=== PATIENT | female | born 1955 | race Caucasian/White ===

== ENCOUNTER 2021-10-17 06:50 | Outpatient (RCR) | payer MEDICARE, SELFPAY ==
--- NOTE | 2021-10-16 10:29 | N.ONRAD NP_ITS ---
Radiation Oncology Consultation Patient Name: Venice Montejo Date of : 1955 Date of Service: 10/16/2021 Attending Physician: Jh Green M.D. Venice Montejo was seen in consultation this morning for consideration of adjuvant breast radiotherapy in the management of a recently diagnosed early stage breast cancer. A screening mammogram ordered on July 03, 2021 identified a spiculated mass at the 12 o'clock position within in the right breast. An ultrasound-guided core biopsy obtained on August 19, 2021 diagnosed a grade 1, invasive mammary carcinoma. Breast cancer profile reported estrogen receptor positivity (> 90%), progesterone receptor positivity (> 90%), and HER-2 negativity (1+ by IHC). An MRI of the breasts (independently reviewed in [facility]) completed on August 30, 2021 demonstrated a 1.8 cm x 1.3 cm x 1.5 cm enhancing mass in the central aspect of the right breast and a 7 mm x 4 mm x 3 mm oval-shaped enhancing mass at the 9 o'clock position within the right breast potentially representing an intramammary lymph node. Ultrasonography confirmed a the irregular mass at the 10 o'clock position within the right breast measuring 1.3 cm x 0.9 cm x 1.2 cm, 5 cm from the nipple and benign intramammary lymph nodes corresponding to the MRI finding. A right partial mastectomy with sentinel lymph node biopsy was performed by Issac Wesley M.D. at [facility] in [place], [place] on September 11, 2021. The pathology report (requested from the outside hospital and personally reviewed in [facility]) described a 1.6 cm, grade 2 invasive ductal carcinoma. All surgical margins were negative for malignancy. A solitary sentinel lymph node was harvested without metastatic disease. The Oncotype DX Recurrence Score was 9. An aromatase inhibitor has been prescribed by Hermelinda Chapman M.D. She was evaluated today for adjuvant breast radiotherapy. I discussed the [place] [employer] on Cancer Staging and specifically the patient's pathologic stage IA (T1cN0) breast cancer and reviewed the National Comprehensive Cancer Network Guidelines endorsing adjuvant radiotherapy. I also summarized the classic study by the NSABP comparing mastectomy, lumpectomy, and lumpectomy with radiotherapy in addition to the Early Breast Cancer Trialist Collaborative Group meta-analysis that established this treatment standard. She is aware that the addition of radiotherapy to lumpectomy provides improvement in local control and overall survival. Prior to beginning treatment, a computed tomographic radiotherapy planning scan in the treatment position will be performed to identify the clinical tumor volume. I would recommend a three week course of hypofractionated radiotherapy to the breast. The potential toxicities of adjuvant breast radiotherapy were recounted. The patient has verbalized understanding and would like to proceed as recommended. The patient's medical treatment was discussed with Hermelinda Chapman M.D. Signed by: Dr. Jh Green 10/16/2021 10:27:49 AM
--- NOTE | 2021-10-17 | CT_ITS ---
Radiation Therapy Planning CT images; total exam DLP: 1139.63 mGy-cm MTDD
== END 2021-10-17 23:59 | disposition home or self-care (01) ==
LOC: ONCMED 06:50
PROVIDERS: Family Provider Family Medicine; PCP Family Medicine; Visit Provider Radiology Radiation Oncology
DX: Z51.0 Encounter for antineoplastic radiation therapy (principal); C50.811 Malignant neoplasm of overlapping sites of right female breast; Z17.0 Estrogen receptor positive status [ER+]; Z90.11 Acquired absence of right breast and nipple; Z79.811 Long term (current) use of aromatase inhibitors
CPT/HCPCS: 77280; 77332; 77470; 99205

== ENCOUNTER 2021-11-04 12:54 | Outpatient (CLI) | payer MEDICARE, SELFPAY ==
--- NOTE | 2021-11-04 13:10 | XR_ITS ---
WS: [id number] DEXA (DUAL ENERGY X-RAY ABSORPTIOMETRY) Bone mineral density was performed using a [employer] machine. HISTORY: BREAST CANCER COMPARISON: None available. Lumbar spine BMD (L1-L4): 0.993 g/cm2 T score: -1.6 Z score: -0.9 Total hip BMD: Left: 0.981 g/cm2. T score: -0.2 Z score: 0.3 Right: 0.934 g/cm2. T score: -0.6 Z score: 0.0 10 year probability of a major osteoporotic fracture is 8.6%. XR/XR DEXA axial skeleton* 35979 IMPRESSION: OSTEOPENIA based upon the WHO classification for females.
== END 2021-11-04 12:55 | disposition home or self-care (01) ==
LOC: RAD 13:06
PROVIDERS: PCP Family Medicine; Visit Provider Internal Medicine Hematology & Oncology
DX: C50.919 Malignant neoplasm of unspecified site of unspecified female breast (principal); M85.80 Other specified disorders of bone density and structure, unspecified site
CPT/HCPCS: 77080

== ENCOUNTER 2021-11-08 06:45 | Outpatient (RCR) | payer MEDICARE, SELFPAY ==
--- NOTE | 2021-10-21 09:24 | ONCRAD TMN_ITS ---
Radiation Oncology Treatment Management Note Patient Name: Venice Montejo Date of : 1955 Date of Service: 10/21/2021 Attending Physician: Jh Green M.D. Venice Montejo is a 66 year-old white female recently diagnosed with a pathological stage IA (T1cN0) ductal carcinoma of the right breast. A screening mammogram ordered on July 03, 2021 identified a spiculated mass at the 12 o'clock position within in the right breast. An ultrasound-guided core biopsy obtained on August 19, 2021 diagnosed a grade 1, invasive mammary carcinoma. Breast cancer profile reported estrogen receptor positivity (> 90%), progesterone receptor positivity (> 90%), and HER-2 negativity (1+ by IHC). An MRI of the breasts (independently reviewed in [facility]) completed on August 30, 2021 demonstrated a 1.8 cm x 1.3 cm x 1.5 cm enhancing mass in the central aspect of the right breast and a 7 mm x 4 mm x 3 mm oval-shaped enhancing mass at the 9 o'clock position within the right breast potentially representing an intramammary lymph node. Ultrasonography confirmed a the irregular mass at the 10 o'clock position within the right breast measuring 1.3 cm x 0.9 cm x 1.2 cm, 5 cm from the nipple and benign intramammary lymph nodes corresponding to the MRI finding. A right partial mastectomy with sentinel lymph node biopsy was performed by Issac Wseley M.D. at [facility] in [place], [place] on September 11, 2021. The pathology report (requested from the outside hospital and personally reviewed in [facility]) described a 1.6 cm, grade 2 invasive ductal carcinoma. All surgical margins were negative for malignancy. A solitary sentinel lymph node was harvested without metastatic disease. The Oncotype DX Recurrence Score was 9. An aromatase inhibitor has been prescribed by Hermelinda Chapman M.D. She has received 2.7 Gy of a prescribed 40 Gy delivered in the prone disposition with a 3D conformal radiotherapy plan utilizing opposed tangential portal naranjo. Upon review of systems, she denied any breast complaints to radiotherapy. On physical examination, the patient weighed 207 lbs. Her temperature was 98 ???F and the blood pressure was 147/79 mmHg. Her pulse was 72 bpm and her respiratory rate was 18. There was no erythema within the treatment naranjo of the right breast. Continue right breast radiotherapy as prescribed. Signed by: Dr. Jh Green 10/21/2021 9:21:56 AM
--- NOTE | 2021-10-28 08:49 | ONCRAD TMN_ITS ---
Radiation Oncology Treatment Management Note Patient Name: Venice Montejo Date of : 1955 Date of Service: 10/28/2021 Attending Physician: Jh Green M.D. Venice Montejo is a 66 year-old white female recently diagnosed with a pathological stage IA (T1cN0) ductal carcinoma of the right breast. A screening mammogram ordered on July 03, 2021 identified a spiculated mass at the 12 o'clock position within in the right breast. An ultrasound-guided core biopsy obtained on August 19, 2021 diagnosed a grade 1, invasive mammary carcinoma. Breast cancer profile reported estrogen receptor positivity (> 90%), progesterone receptor positivity (> 90%), and HER-2 negativity (1+ by IHC). An MRI of the breasts (independently reviewed in [facility]) completed on August 30, 2021 demonstrated a 1.8 cm x 1.3 cm x 1.5 cm enhancing mass in the central aspect of the right breast and a 7 mm x 4 mm x 3 mm oval-shaped enhancing mass at the 9 o'clock position within the right breast potentially representing an intramammary lymph node. Ultrasonography confirmed a the irregular mass at the 10 o'clock position within the right breast measuring 1.3 cm x 0.9 cm x 1.2 cm, 5 cm from the nipple and benign intramammary lymph nodes corresponding to the MRI finding. A right partial mastectomy with sentinel lymph node biopsy was performed by Issac Wesley M.D. at [facility] in [place], [place] on September 11, 2021. The pathology report (requested from the outside hospital and personally reviewed in [facility]) described a 1.6 cm, grade 2 invasive ductal carcinoma. All surgical margins were negative for malignancy. A solitary sentinel lymph node was harvested without metastatic disease. The Oncotype DX Recurrence Score was 9. An aromatase inhibitor has been prescribed by Hermelinda Chapman M.D. She has received 16 Gy of a prescribed 40 Gy delivered in the prone disposition with a 3D conformal radiotherapy plan utilizing opposed tangential portal naranjo. Upon review of systems, she did not report any breast complaints to radiotherapy. On physical examination, the patient weighed 207 lbs. Her temperature was 97.5 ???F and the blood pressure was 138/76 mmHg. Her pulse was 84 bpm and her respiratory rate was 20. There was no erythema within the treatment naranjo of the right breast. Continue right breast radiotherapy as planned. Signed by: Dr. Jh Green 10/28/2021 8:47:21 AM
--- NOTE | 2021-11-04 09:09 | ONCRAD TMN_ITS ---
Radiation Oncology Treatment Management Note Patient Name: Venice Montejo Date of : 1955 Date of Service: 11/04/2021 Attending Physician: Jh Green M.D. Venice Montejo is a 66 year-old white female recently diagnosed with a pathological stage IA (T1cN0) ductal carcinoma of the right breast. A screening mammogram ordered on July 03, 2021 identified a spiculated mass at the 12 o'clock position within in the right breast. An ultrasound-guided core biopsy obtained on August 19, 2021 diagnosed a grade 1, invasive mammary carcinoma. Breast cancer profile reported estrogen receptor positivity (> 90%), progesterone receptor positivity (> 90%), and HER-2 negativity (1+ by IHC). An MRI of the breasts (independently reviewed in [facility]) completed on August 30, 2021 demonstrated a 1.8 cm x 1.3 cm x 1.5 cm enhancing mass in the central aspect of the right breast and a 7 mm x 4 mm x 3 mm oval-shaped enhancing mass at the 9 o'clock position within the right breast potentially representing an intramammary lymph node. Ultrasonography confirmed a the irregular mass at the 10 o'clock position within the right breast measuring 1.3 cm x 0.9 cm x 1.2 cm, 5 cm from the nipple and benign intramammary lymph nodes corresponding to the MRI finding. A right partial mastectomy with sentinel lymph node biopsy was performed by Issac Wesley M.D. at [facility] in [place], [place] on September 11, 2021. The pathology report (requested from the outside hospital and personally reviewed in [facility]) described a 1.6 cm, grade 2 invasive ductal carcinoma. All surgical margins were negative for malignancy. A solitary sentinel lymph node was harvested without metastatic disease. The Oncotype DX Recurrence Score was 9. An aromatase inhibitor has been prescribed by Hermelinda Chapman M.D. She has received 29.3 Gy of a prescribed 40 Gy delivered in the prone disposition with a 3D conformal radiotherapy plan utilizing opposed tangential portal naranjo. Upon review of systems, she did not report any breast complaints related to radiotherapy. On physical examination, the patient weighed 207 lbs. Her temperature was 98 ???F and the blood pressure was 155/80 mmHg. Her pulse was 74 bpm and her respiratory rate was 16. There was no erythema within the treatment naranjo of the right breast. Continue right breast radiotherapy as prescribed. Signed by: Jh Green 11/04/2021 9:08:02 AM
--- NOTE | 2021-11-08 08:23 | N.ONRD TS_ITS ---
Radiation OncologyTreatment Summary Patient Name: Venice Montejo Date of : 1955 Date of Service: 11/08/2021 Attending Physician: Jh Green M.D. Venice Montejo has completed adjuvant breast radiotherapy for the management of a pathological stage IA (T1cN0) ductal carcinoma of the right breast. A screening mammogram ordered on July 03, 2021 identified a spiculated mass at the 12 o'clock position within in the right breast. An ultrasound-guided core biopsy obtained on August 19, 2021 diagnosed a grade 1, invasive mammary carcinoma. Breast cancer profile reported estrogen receptor positivity (> 90%), progesterone receptor positivity (> 90%), and HER-2 negativity (1+ by IHC). An MRI of the breasts completed on August 30, 2021 demonstrated a 1.8 cm x 1.3 cm x 1.5 cm enhancing mass in the central aspect of the right breast and a 7 mm x 4 mm x 3 mm oval-shaped enhancing mass at the 9 o'clock position within the right breast potentially representing an intramammary lymph node. Ultrasonography confirmed a the irregular mass at the 10 o'clock position within the right breast measuring 1.3 cm x 0.9 cm x 1.2 cm, 5 cm from the nipple and benign intramammary lymph nodes corresponding to the MRI finding. A right partial mastectomy with sentinel lymph node biopsy was performed by Issac Wesley M.D. at [facility] in [place], [place] on September 11, 2021. The pathology report (requested from the outside hospital and personally reviewed in [facility]) described a 1.6 cm, grade 2 invasive ductal carcinoma. All surgical margins were negative for malignancy. A solitary sentinel lymph node was harvested without metastatic disease. The Oncotype DX Recurrence Score was 9. An aromatase inhibitor was prescribed by Hermelinda Chapman M.D. Daily radiotherapy was administered between the dates of October 21, 2021 through November 08, 2021. A prescribed dose of 40 Gy was delivered in 15 fractions encompassing 19 elapsed days. The right breast was treated in the prone position with a 3-dimensional conformal radiotherapy plan applying an opposed tangential portal field design utilizing a [id number] treatment technique. The medial tangential field utilized a 245??? gantry angle with a collimator angle of 352???. The field size measured 13 cm x 6.1 cm within the X-direction and 8 cm x 8.5 cm within the Y-direction. The SSD measured 92 cm with the field delivering 152 monitor units. An energy of 6 MV was prescribed. A supplemental medial tangential port with multi-leaf collimation were designed prescribing 6 MV photon energy that administered 14 monitor units. The lateral tangential field employed a gantry angle of 62??? with a collimator angle of 8???. The portal size measured 6.1 cm x 13 cm within X-direction and 8 cm x 8.5 cm within the Y-direction. The measured SSD was 91.7 cm with the field allocating 153 monitor units. A photon energy of 6 MV was prescribed. Auxiliary lateral tangential ports with MLC were designed assigning 6 MV photon energy that apportioned 14 monitor units and 14 monitor units, respectively. All treatments were performed with the [employer] linear accelerator and an isocentric technique. The dose was calculated by Anisotropic Analytic Algorithm. The plan was normalized to deliver 95% of the prescription dose to 95% of the planning target volume. Signed by: Jh Green 11/08/2021 8:22:03 AM
== END 2021-11-16 23:59 | disposition home or self-care (01) ==
LOC: ONCMED 06:45
PROVIDERS: Family Provider Family Medicine; PCP Family Medicine; Visit Provider Radiology Radiation Oncology
DX: Z51.0 Encounter for antineoplastic radiation therapy (principal); C50.811 Malignant neoplasm of overlapping sites of right female breast; Z17.0 Estrogen receptor positive status [ER+]; Z90.11 Acquired absence of right breast and nipple; Z79.811 Long term (current) use of aromatase inhibitors
CPT/HCPCS: 77295; 77300; 77334; 77336; 77387; 77412

== ENCOUNTER 2021-11-22 07:54 | Oncology outpatient (recurring) (ONCR) | payer MEDICARE, SELFPAY ==
--- NOTE | 2021-11-22 08:17 | ONCRAD EPV_ITS ---
Radiation Oncology Follow-Up Note Patient Name: Venice Montejo Date of : 1955 Date of Service: 11/22/2021 Attending Physician: Jh Green M.D. Venice Montejo returned to my office this morning for a routinely scheduled post-radiotherapy follow-up appointment. She completed adjuvant right breast radiotherapy in October for the management of a pathological stage IA (T1cN0) ductal carcinoma of the right breast. A screening mammogram ordered on July 03, 2021 identified a spiculated mass at the 12 o'clock position within in the right breast. An ultrasound-guided core biopsy obtained on August 19, 2021 diagnosed a grade 1, invasive mammary carcinoma. Breast cancer profile reported estrogen receptor positivity (> 90%), progesterone receptor positivity (> 90%), and HER-2 negativity (1+ by IHC). An MRI of the breasts completed on August 30, 2021 demonstrated a 1.8 cm x 1.3 cm x 1.5 cm enhancing mass in the central aspect of the right breast and a 7 mm x 4 mm x 3 mm oval-shaped enhancing mass at the 9 o'clock position within the right breast potentially representing an intramammary lymph node. Ultrasonography confirmed a the irregular mass at the 10 o'clock position within the right breast measuring 1.3 cm x 0.9 cm x 1.2 cm, 5 cm from the nipple and benign intramammary lymph nodes corresponding to the MRI finding. A right partial mastectomy with sentinel lymph node biopsy was performed by Issac Wesley M.D. at [facility] in [place], [place] on September 11, 2021. The pathology report described a 1.6 cm, grade 2 invasive ductal carcinoma. All surgical margins were negative for malignancy. A solitary sentinel lymph node was harvested without metastatic disease. The Oncotype DX Recurrence Score was 9. An aromatase inhibitor was prescribed by Hermelinda Chapman M.D. Daily radiotherapy was administered between the dates of October 21, 2021 through November 08, 2021. A prescribed dose of 40 Gy was delivered in 15 fractions encompassing 19 elapsed days. On review of systems, she did not report any breast complaints. On physical examination, the patient weighed 207 lbs. The temperature was 96.5???F and her blood pressure was 149/82 mmHg. The pulse was 85 bpm and the respiratory rate was 20 breaths per minute. Examination of the right breast did not reveal any significant erythema. In summary, Ms. Montejo returned for a routine post radiotherapy follow-up. There were no sequelae from treatment. She will continue follow-up as scheduled with her medical oncologist. Signed by: Jh Green 11/22/2021 8:16:25 AM
== END 2021-12-17 23:59 | disposition home or self-care (01) ==
PROVIDERS: PCP Family Medicine; Visit Provider Radiology Radiation Oncology
DX: C50.911 Malignant neoplasm of unspecified site of right female breast (principal); Z17.0 Estrogen receptor positive status [ER+]
CPT/HCPCS: G0463

== ENCOUNTER 2022-03-25 08:01 | Oncology outpatient (recurring) (ONCR) | payer MEDICARE, SELFPAY | END 2022-04-18 23:59 | disposition home or self-care (01) | LOC: ONCMED 08:02 | PROVIDERS: PCP Family Medicine; Visit Provider Radiology Radiation Oncology | DX: C50.511 Malignant neoplasm of lower-outer quadrant of right female breast (principal); Z17.0 Estrogen receptor positive status [ER+]; M85.88 Other specified disorders of bone density and structure, other site; Z79.818 Long term (current) use of other agents affecting estrogen receptors and estrogen levels; Z92.3 Personal history of irradiation | CPT/HCPCS: 99204 ==

== ENCOUNTER 2022-10-03 08:18 | Oncology outpatient (recurring) (ONCR) | payer MEDICARE, SELFPAY | END 2022-10-17 23:59 | disposition home or self-care (01) | PROVIDERS: PCP Family Medicine; Visit Provider Nurse Practitioner | DX: C50.511 Malignant neoplasm of lower-outer quadrant of right female breast (principal); Z17.0 Estrogen receptor positive status [ER+]; M85.88 Other specified disorders of bone density and structure, other site; Z79.818 Long term (current) use of other agents affecting estrogen receptors and estrogen levels; Z92.3 Personal history of irradiation; Z79.899 Other long term (current) drug therapy | CPT/HCPCS: 99213; 99214 ==

== ENCOUNTER 2022-11-28 08:31 | Oncology outpatient (recurring) (ONCR) | payer MEDICARE, SELFPAY | END 2022-12-17 23:59 | disposition home or self-care (01) | LOC: ONCMED 08:31 | PROVIDERS: PCP Family Medicine; Visit Provider Nurse Practitioner | DX: C50.511 Malignant neoplasm of lower-outer quadrant of right female breast (principal); Z17.0 Estrogen receptor positive status [ER+]; M85.88 Other specified disorders of bone density and structure, other site; Z79.811 Long term (current) use of aromatase inhibitors; Z92.3 Personal history of irradiation; Z79.899 Other long term (current) drug therapy | CPT/HCPCS: 99214 ==

== ENCOUNTER 2023-05-29 08:58 | Oncology outpatient (recurring) (ONCR) | payer MEDICARE, SELFPAY | END 2023-06-18 23:59 | disposition home or self-care (01) | LOC: ONCMED 08:59 | PROVIDERS: PCP Family Medicine; Visit Provider Nurse Practitioner | DX: C50.511 Malignant neoplasm of lower-outer quadrant of right female breast (principal); Z17.0 Estrogen receptor positive status [ER+]; M85.88 Other specified disorders of bone density and structure, other site; Z79.818 Long term (current) use of other agents affecting estrogen receptors and estrogen levels; Z92.3 Personal history of irradiation | CPT/HCPCS: 99214 ==

== ENCOUNTER 2023-11-13 12:42 | Outpatient (CLI) | payer MEDICARE, SELFPAY ==
--- NOTE | 2023-11-13 13:00 | XR_ITS ---
WS: [id number] DEXA (DUAL ENERGY X-RAY ABSORPTIOMETRY) Bone mineral density was performed using a [employer] machine. HISTORY: history of osteopenia; on aromatase inhibitor COMPARISON: 11/04/2021 Lumbar spine BMD (L1-L4): 0.990 g/cm2 T score: -1.6 Z score: -1.0 Total hip BMD: Left: 0.926 g/cm2. T score: -0.7 Z score: 0.0 Right: 0.909 g/cm2. T score: -0.8 Z score: -0.2 10 year probability of a major osteoporotic fracture is 11.2%. Compared to the prior study from 11/04/2021. Lumbar spine bone mineral density has decreased by 0.3%. Bilateral hips bone mineral density has decreased by 4.2%. IMPRESSION: OSTEOPENIA based upon the WHO classification for females. No significant change in bone mineral density within the lumbar spine. Decreased bone mineral density within the hips since the prior study.
== END 2023-11-13 12:43 | disposition home or self-care (01) ==
LOC: RAD 12:44
PROVIDERS: PCP Family Medicine; Visit Provider Nurse Practitioner Family
DX: Z13.820 Encounter for screening for osteoporosis (principal); Z78.0 Asymptomatic menopausal state; M85.88 Other specified disorders of bone density and structure, other site
CPT/HCPCS: 77080

== ENCOUNTER 2023-11-27 09:20 | Oncology outpatient (recurring) (ONCR) | payer MEDICARE, SELFPAY ==
[2023-11-27 11:28] LABS: 25 Hydroxy Vitamin D 33 ng/mL (30-100)
== END 2023-12-18 23:59 | disposition home or self-care (01) ==
PROVIDERS: Nurse Practitioner Family; PCP Family Medicine; Visit Provider Nurse Practitioner
DX: C50.511 Malignant neoplasm of lower-outer quadrant of right female breast (principal); Z17.0 Estrogen receptor positive status [ER+]; Z92.3 Personal history of irradiation; M85.80 Other specified disorders of bone density and structure, unspecified site; Z78.0 Asymptomatic menopausal state; Z79.811 Long term (current) use of aromatase inhibitors
CPT/HCPCS: 36415; 82306; 99214

== ENCOUNTER 2024-05-03 15:06 | Oncology outpatient (recurring) (ONCR) | payer MEDICARE, SELFPAY | END 2024-05-19 23:59 | disposition home or self-care (01) | LOC: ONCMED 15:07 | PROVIDERS: PCP Family Medicine; Visit Provider Nurse Practitioner | DX: C50.511 Malignant neoplasm of lower-outer quadrant of right female breast (principal); Z78.0 Asymptomatic menopausal state; Z17.0 Estrogen receptor positive status [ER+]; Z92.3 Personal history of irradiation; Z79.811 Long term (current) use of aromatase inhibitors; Z79.818 Long term (current) use of other agents affecting estrogen receptors and estrogen levels; M85.80 Other specified disorders of bone density and structure, unspecified site | CPT/HCPCS: 99213 ==

== ENCOUNTER 2024-11-03 11:30 | Oncology outpatient (recurring) (ONCR) | payer MEDICARE, SELFPAY | END 2024-11-16 23:59 | disposition home or self-care (01) | PROVIDERS: PCP Family Medicine; Visit Provider Nurse Practitioner | DX: C50.511 Malignant neoplasm of lower-outer quadrant of right female breast (principal); Z17.0 Estrogen receptor positive status [ER+]; M85.80 Other specified disorders of bone density and structure, unspecified site; Z79.811 Long term (current) use of aromatase inhibitors; Z92.3 Personal history of irradiation | CPT/HCPCS: 99214 ==

== ENCOUNTER 2025-05-05 08:53 | Oncology outpatient (recurring) (ONCR) | payer MEDICARE, SELFPAY | END 2025-05-19 23:59 | disposition home or self-care (01) | LOC: ONCMED 08:53 | PROVIDERS: PCP Family Medicine; Visit Provider Nurse Practitioner | DX: C50.511 Malignant neoplasm of lower-outer quadrant of right female breast (principal); Z17.0 Estrogen receptor positive status [ER+]; M85.80 Other specified disorders of bone density and structure, unspecified site; Z79.899 Other long term (current) drug therapy; Z79.811 Long term (current) use of aromatase inhibitors; Z92.3 Personal history of irradiation | CPT/HCPCS: 99213 ==